=== PATIENT | male | born 1940 | race Caucasian/White ===

== ENCOUNTER 2018-04-23 19:39 | Inpatient (IN) | payer MEDICARE, OTHER ==
[~2018-04-23] VITALS: Ht 172.7 cm; Wt 60.8 kg
--- NOTE | 2018-04-23 19:39 | NUR ---
BBPA FROM [facility] C/C COMBATIVE BEHAVIOR REFUSING MEDICATIONS. NO SI HI WHEN ASSESSED BUT WILL CONTINUE TO MONITOR FOR ANY CHANGES. VSS NAD ABLE TO MAKE NEEDS KNOWN.
[2018-04-23 20:08] LABS: BASOPHILS % (AUTO) 0.2 % (0.0-2.0); EOSINOPHILS % (AUTO) 5.1 % (0.0-6.0); HEMATOCRIT 37 % (39-51); HEMOGLOBIN 12.6 g/dL (13.5-17.5); LYMPHOCYTES % (AUTO) 40.8 % (20.0-44.0); MEAN CORPUSCULAR HEMOGLOBIN 30 PG (26.0-33.0); MEAN CORPUSCULAR HGB CONC 34 g/dl (31.0-36.0); MEAN CORPUSCULAR VOLUME 89 fL (80-96); MONOCYTES # (AUTO) 0.5 /CMM (0.1-1.30); MONOCYTES % (AUTO) 10.6 % (2.0-12.0); NEUTROPHILS # (AUTO) 2.1 /CMM (1.8-8.9); NEUTROPHILS % (AUTO) 43.3 % (43.0-81.0); PLATELET COUNT (AUTO) 181 /CMM (150-450); RDW COEFFICIENT OF VARIATION 14.8 (11.5-15.0); RED BLOOD CELL COUNT(AUTO) 4.15 MIL/uL (4.5-6.0); WHITE BLOOD COUNT (AUTO) 4.8 K/uL (4.3-11.0)
[2018-04-23 20:10] LABS: APPEARANCE,URINE Slightly Cloudy (CLEAR); BILIRUBIN,URINE Negative (NEGATIVE); BLOOD, URINE Trace-lysed Ery/uL (NEGATIVE); COLOR,URINE Yellow (YELLOW); KETONES,URINE Negative (NEGATIVE); LEUKOCYTE ESTERASE ,URINE Negative (NEGATIVE); NITRITE, URINE Negative (NEGATIVE); PROTEIN,URINE Negative (NEGATIVE); UGLUCOSE Negative (NEGATIVE); UROBILINOGEN,URINE 0.2 EU/dL (0.2)
[2018-04-23 20:22] LABS: BACTERIA,URINE Rare /HPF (None Seen); SQUAMOUS EPITHELIAL CELL,UR Few /HPF (None Seen); WBC,URINE NONE SEEN /HPF (0-3)
[2018-04-23 20:24] LABS: CALCIUM, SERUM 9.6 mg/dL (8.5-10.1); CARBON DIOXIDE 29 mmol/L (21-32); CHLORIDE 104 mmol/L (98-107); CREATININE 0.7 mg/dL (0.6-1.3); GLUCOSE 117 mg/dL (74-106); POTASSIUM 3.9 mmol/L (3.5-5.1); SODIUM SERUM 138 mmol/L (136-145); UREA NITROGEN, BLOOD 17 mg/dL (7-18)
[2018-04-23 20:30] LABS: ALANINE AMINOTRANSFERASE 16 U/L (12-78); ALBUMIN 3.6 g/dL (3.4-5.0); ALCOHOL, BLOOD < 3 mg/dL (0-0); ALKALINE PHOSPHATASE 66 U/L (46-116); ASPARTATE AMINOTRANSFERASE 14 U/L (15-37); BILIRUBIN,DIRECT 0.1 mg/dL (0.0-0.2); BILIRUBIN,TOTAL 0.4 mg/dL (0.2-1.0); TOTAL PROTEIN, SERUM 7.1 g/dL (6.4-8.2)
[2018-04-23 20:32] LABS: ACETAMINOPHEN < 2 ug/ml (10-30); SALICYLATE 2.5 mg/dL (2.8-20.0)
[2018-04-23] MEDS ORDERED: MIRT15TA PO (22:13)
[2018-04-23] MEDS ORDERED: OLAN5TAB3 PO (22:13)
[2018-04-23] MEDS ORDERED: OXYB5TAB29 PO (22:13)
[2018-04-23] MEDS ORDERED: PANT40TA2 PO (22:13)
[2018-04-23] MEDS ORDERED: BENZ2AMP PO (22:13)
[2018-04-23] MEDS ORDERED: RIVA1PAT3 PO (22:13)
[2018-04-23] MEDS ORDERED: MONT10TA22 PO (22:13)
[2018-04-23] MEDS ORDERED: DIVA500T2 PO (22:13)
[2018-04-23] MEDS ORDERED: HALO10TA13 PO (22:13)
--- NOTE | 2018-04-23 22:18 | NUR ---
REPORT GIVEN TO TIFFANIE
[2018-04-23] MEDS ORDERED: MAGNESIUM HYDROXIDE 30 ML UDC PO PRN (23:30)
[2018-04-23] MEDS ORDERED: ACETAMINOPHEN 325 MG TABLET PO PRN (23:30)
[2018-04-23] MEDS ORDERED: ZOLPIDEM TARTRATE 5 MG TABLET PO PRN (23:30)
--- NOTE | 2018-04-24 02:14 | NUR ---
GPS/DOUBLE BACK OPERATOR ADMISSION NOTES: RECEIVED 77YR OLD MALE PT. ON A 5150 HOLD FOR DTO AND GD. PT. A/O X2. PT. GIVEN ADVISEMENT, ORIENTED TO UNIT POLICY AND PROTOCOLS AND ROUTINE. CONTRABAND AND BELONGINGS LOGGED AND TAKEN FROM PT. AND PLACED ON LOCKED CABINET AND SAFE. CALL BRAVO WITHIN REACH AND SAFETY ENVIRONMENT OBSERVED AT ALL TIMES. NO SI/HI AT THIS TIME. BED IN LOCKED POSITION. NO C/O PAIN OR DISCOMFORT AT THIS TIME. MEDICAL DR. GUERRERO AND PSYCH DR. BAR NOTIFIED OF PT. ADMISSION TO UNIT.
[2018-04-24] MEDS: OXYBUTYNIN CHLORIDE ER 5 MG TAB PO SCH ×2 (08:28→16:32)
[2018-04-24] MEDS: DIVALPROEX SODIUM 500 MG TABLET.DR PO SCH ×2 (08:28→16:31)
[2018-04-24] MEDS: PANTOPRAZOLE 40 MG TABLET.DR PO SCH (08:29)
[2018-04-24] MEDS: RIVASTIGMINE TARTRATE 4.6 MG PATCH.TD24 TD SCH (08:29)
[2018-04-24] MEDS: NICOTINE PATCH (21MG) 21 MG PATCH.TD24 TD SCH (09:10)
[2018-04-24] MEDS: HALOPERIDOL 5 MG TABLET PO SCH ×2 (12:54→16:32)
[2018-04-24] MEDS: BENZTROPINE MESYLATE (1 MG) 1 MG TABLET PO SCH ×2 (12:54→16:31)
[2018-04-24 16:00] VITALS: BP 128/76
--- NOTE | 2018-04-24 17:39 | NUR ---
Initial Discharge Plan: Pt resides at the [facility], [address] [facility]. [facility] [address] per 5150 report. Pts DPOA is his brother, Devaughn Bey, per facility staff report. STEVE contacted the facility and spoke to Janet who stated that pt would need to be re assessed by Helean or Bella, Administrators to evaluate his appropriateness. STEVE contacted pts brother, MARJAN Bey , however was unable to speak to him and or leave a message. SW will follow up to ensure pt is safely and adequately discharged.
[2018-04-24] MEDS: MONTELUKAST SODIUM (10MG) 10 MG TABLET PO SCH (17:48)
[2018-04-24] MEDS: MAG HYDROX/AL HYDROX/SIMETH 30 ML UDC PO PRN (20:49)
[2018-04-24] MEDS: QUETIAPINE FUMARATE 25 MG TABLET PO SCH (22:34)
[2018-04-24] MEDS: LORAZEPAM 0.5 MG TABLET PO PRN (22:34)
[2018-04-25] MEDS: MAG HYDROX/AL HYDROX/SIMETH 30 ML UDC PO PRN ×2 (01:13→09:41)
[2018-04-25] MEDS: BENZTROPINE MESYLATE (1 MG) 1 MG TABLET PO SCH ×3 (08:34→17:03)
[2018-04-25] MEDS: OXYBUTYNIN CHLORIDE ER 5 MG TAB PO SCH ×2 (08:34→17:02)
[2018-04-25] MEDS: PANTOPRAZOLE 40 MG TABLET.DR PO SCH (08:34)
[2018-04-25] MEDS: HALOPERIDOL 5 MG TABLET PO SCH ×3 (08:34→17:03)
[2018-04-25] MEDS: DIVALPROEX SODIUM 500 MG TABLET.DR PO SCH ×2 (08:34→17:02)
[2018-04-25] MEDS: RIVASTIGMINE TARTRATE 4.6 MG PATCH.TD24 TD SCH (08:35)
[2018-04-25] MEDS: NICOTINE PATCH (21MG) 21 MG PATCH.TD24 TD SCH (08:35)
--- NOTE | 2018-04-25 08:35 | NUR ---
AM RN NOTE Pt refused nicotine and Exelon patch, explained risks and benefits but still refused.
[2018-04-25 16:00] VITALS: BP 104/70
--- NOTE | 2018-04-25 16:54 | NUR ---
AM RN NOTE Dr. Chatterjee did his rounds made aware that pt refused labs with NNO at this time. Addendum: 04/25/18 at 1803 by DEN PABON RN ADD TO ABOVE NOTE DR. CHATTERJEE ALSO MADE AWARE THAT PT REFUSED EXELON AND NICOTINE PATCH.
[2018-04-25] MEDS: MONTELUKAST SODIUM (10MG) 10 MG TABLET PO SCH (17:02)
--- NOTE | 2018-04-25 19:30 | NUR ---
RN NOTES RECEIVED PATIENT AMBULATING IN HALLWAY WITH MOSTLY STEADY GAIT. AO X 1, ABLE TO MAKE NEEDS KNOWN. NO ACUTE DISTRESS NOTED. DENIES ANY PAIN AT THIS TIME. REORIENTED FREQUENTLY. SAFETY REMINDERS GIVEN. BED IN ROOM SET TO LOW WITH BILATERAL UPPER SIDE RAILS UP. CALL BRAVO WITHIN EASY REACH. WILL CONTINUE TO MONITOR.
[2018-04-25 20:00] VITALS: BP 116/69
[2018-04-25] MEDS: QUETIAPINE FUMARATE 25 MG TABLET PO SCH (22:59)
[2018-04-26] MEDS: LORAZEPAM 0.5 MG TABLET PO PRN (00:03)
[2018-04-26] MEDS: QUETIAPINE FUMARATE 25 MG TABLET PO SCH (00:06)
--- NOTE | 2018-04-26 06:27 | NUR ---
RN NOTES PATIENT ASLEEP, EASILY AROUSABLE. RESPIRATIONS EVEN. NO SIGNS OF PAIN NOTED. DUE MED GIVEN WITH NO ASE NOTE. NEEDS ATTENDED. KEPT CLEAN, DRY, AND COMFORTABLE. SAFETY PRECAUTIONS AND COMFORT MEASURES IN PLACE. WILL GIVE REPORT TO DAY SHIFT FOR CONTINUITY OF CARE.
[2018-04-26 08:00] VITALS: BP 128/74
[2018-04-26] MEDS: NICOTINE PATCH (21MG) 21 MG PATCH.TD24 TD SCH (09:00)
[2018-04-26] MEDS: RIVASTIGMINE TARTRATE 4.6 MG PATCH.TD24 TD SCH (09:00)
[2018-04-26] MEDS: HALOPERIDOL 5 MG TABLET PO SCH ×3 (09:15→16:39)
[2018-04-26] MEDS: OXYBUTYNIN CHLORIDE ER 5 MG TAB PO SCH ×2 (09:15→16:38)
[2018-04-26] MEDS: PANTOPRAZOLE 40 MG TABLET.DR PO SCH (09:15)
[2018-04-26] MEDS: DIVALPROEX SODIUM 500 MG TABLET.DR PO SCH ×2 (09:15→16:39)
[2018-04-26] MEDS: BENZTROPINE MESYLATE (1 MG) 1 MG TABLET PO SCH ×3 (09:16→16:39)
[2018-04-26 16:00] VITALS: BP 141/88
[2018-04-26] MEDS: MONTELUKAST SODIUM (10MG) 10 MG TABLET PO SCH (18:00)
--- NOTE | 2018-04-26 18:19 | NUR ---
RN CLOSING. PT PACING HALLS AND REQUESTING COFFEES. PT VOCALLY ESCALATES WITH HOSTILE TONES WHEN IS NOT UNDERSTOOD OR DENIED MORE COFFEE. PT OTHERWISE WITHOUT CONCERN OR COMPLAINT.
[2018-04-26 20:16] VITALS: BP 139/77
--- NOTE | 2018-04-26 20:26 | NUR ---
GPS RN NOTES PT. REFUSED VITAL SIGNS , ENCOURAGED AND EXPLAIN RISKS AND BENEFITS STILL REFUSED.
[2018-04-27] MEDS: NICOTINE PATCH (21MG) 21 MG PATCH.TD24 TD SCH ×2 (08:01→08:08)
[2018-04-27] MEDS: BENZTROPINE MESYLATE (1 MG) 1 MG TABLET PO SCH ×3 (08:01→16:53)
[2018-04-27] MEDS: RIVASTIGMINE TARTRATE 4.6 MG PATCH.TD24 TD SCH ×2 (08:01→08:08)
[2018-04-27] MEDS: OXYBUTYNIN CHLORIDE ER 5 MG TAB PO SCH ×2 (08:01→16:53)
[2018-04-27] MEDS: HALOPERIDOL 5 MG TABLET PO SCH ×3 (08:01→16:53)
[2018-04-27] MEDS: DIVALPROEX SODIUM 500 MG TABLET.DR PO SCH ×2 (08:01→16:53)
[2018-04-27] MEDS: PANTOPRAZOLE 40 MG TABLET.DR PO SCH (08:01)
--- NOTE | 2018-04-27 11:00 | NUR ---
pts brother/ conservator Devaughn Bey visited to speak to her regarding pts discharge plan. Pts brother understands that pt may no be accepted back to assisted living facility due to his behavior. Pts brother informed that if facility does not take pt back he would like assistance with relocating pt to another assisted living facility in the [facility]. Pts ismaer mentioned to that he is only able to pay $1.059.00/month. informed pts brother that she would contact him to further discuss discharge plans once discharge date has been given by and [facility] has done evaluation. Addendum: 05/04/18 at 1235 by SHERRY AN Brother is pts Probate conservator.
[2018-04-27 16:00] VITALS: BP_SYST 106; BP_SYST 131; BP_DIAS 103
[2018-04-27] MEDS: MONTELUKAST SODIUM (10MG) 10 MG TABLET PO SCH (17:00)
[2018-04-27 20:00] VITALS: BP 110/73
[2018-04-27] MEDS: QUETIAPINE FUMARATE 25 MG TABLET PO SCH (21:23)
[2018-04-28] MEDS: LORAZEPAM 0.5 MG TABLET PO PRN (00:32)
[2018-04-28] MEDS: MAG HYDROX/AL HYDROX/SIMETH 30 ML UDC PO PRN (02:33)
--- NOTE | 2018-04-28 06:42 | NUR ---
RN NOTES PATIENT AWAKE. RESPIRATIONS EVEN. NO SIGNS OF PAIN NOTED. DUE MED GIVEN WITH NO ASE NOTE. NEEDS ATTENDED. KEPT CLEAN, DRY, AND COMFORTABLE. SAFETY PRECAUTIONS AND COMFORT MEASURES IN PLACE. WILL GIVE REPORT TO DAY SHIFT FOR CONTINUITY OF CARE.
[2018-04-28 08:57] VITALS: BP 117/81
[2018-04-28] MEDS: OXYBUTYNIN CHLORIDE ER 5 MG TAB PO SCH ×2 (09:02→17:42)
[2018-04-28] MEDS: NICOTINE PATCH (21MG) 21 MG PATCH.TD24 TD SCH (09:02)
[2018-04-28] MEDS: RIVASTIGMINE TARTRATE 4.6 MG PATCH.TD24 TD SCH (09:02)
[2018-04-28] MEDS: HALOPERIDOL 5 MG TABLET PO SCH ×3 (09:03→17:42)
[2018-04-28] MEDS: BENZTROPINE MESYLATE (1 MG) 1 MG TABLET PO SCH ×3 (09:03→17:42)
[2018-04-28] MEDS: PANTOPRAZOLE 40 MG TABLET.DR PO SCH (09:03)
[2018-04-28] MEDS: DIVALPROEX SODIUM 500 MG TABLET.DR PO SCH ×2 (09:04→17:42)
--- NOTE | 2018-04-28 14:46 | NUR ---
STEVE contacted [facility] [phone] and left a voicemail for Opal business process coordinator to schedule evaluation for pts return back to facility.
[2018-04-28 16:00] VITALS: BP 98/72
[2018-04-28] MEDS: MONTELUKAST SODIUM (10MG) 10 MG TABLET PO SCH (17:41)
[2018-04-28] MEDS: QUETIAPINE FUMARATE 25 MG TABLET PO SCH (21:14)
[2018-04-29] MEDS: MAG HYDROX/AL HYDROX/SIMETH 30 ML UDC PO PRN (02:47)
--- NOTE | 2018-04-29 02:57 | NUR ---
GPS RN NOTES PT. REFUSED VITAL SIGNS FOR 1999 PM , ENCOURAGED AND EXPLAIN RISKS AND BENEFITS STILL REFUSED.
[2018-04-29 08:00] VITALS: BP 122/79
[2018-04-29] MEDS: NICOTINE PATCH (21MG) 21 MG PATCH.TD24 TD SCH (09:01)
[2018-04-29] MEDS: DIVALPROEX SODIUM 500 MG TABLET.DR PO SCH ×2 (09:01→17:15)
[2018-04-29] MEDS: OXYBUTYNIN CHLORIDE ER 5 MG TAB PO SCH ×2 (09:01→17:15)
[2018-04-29] MEDS: RIVASTIGMINE TARTRATE 4.6 MG PATCH.TD24 TD SCH (09:01)
[2018-04-29] MEDS: BENZTROPINE MESYLATE (1 MG) 1 MG TABLET PO SCH ×3 (09:01→17:15)
[2018-04-29] MEDS: PANTOPRAZOLE 40 MG TABLET.DR PO SCH (09:01)
[2018-04-29] MEDS: HALOPERIDOL 5 MG TABLET PO SCH ×3 (09:04→17:15)
--- NOTE | 2018-04-29 10:08 | NUR ---
STEVE contacted Helena real estate services coordinator at [facility] [address] [place] [address] to inform her that pt will be discharged on Friday05/01/18. Helena asked STEVE to fax medication list to determine a re-admission and assessment of pt.
--- NOTE | 2018-04-29 10:15 | NUR ---
STEVE faxed medications list to Helena event promotions coordinator at [facility] [address] [place] [address]
[2018-04-29 16:00] VITALS: BP 127/87
[2018-04-29] MEDS: MONTELUKAST SODIUM (10MG) 10 MG TABLET PO SCH (17:15)
[2018-04-29 20:17] VITALS: BP 140/71
[2018-04-29] MEDS: QUETIAPINE FUMARATE 25 MG TABLET PO SCH (21:11)
[2018-04-30 08:00] VITALS: BP 100/59
[2018-04-30] MEDS: BENZTROPINE MESYLATE (1 MG) 1 MG TABLET PO SCH ×3 (08:41→17:02)
[2018-04-30] MEDS: RIVASTIGMINE TARTRATE 4.6 MG PATCH.TD24 TD SCH (08:41)
[2018-04-30] MEDS: NICOTINE PATCH (21MG) 21 MG PATCH.TD24 TD SCH (08:41)
[2018-04-30] MEDS: DIVALPROEX SODIUM 500 MG TABLET.DR PO SCH ×2 (08:41→17:02)
[2018-04-30] MEDS: OXYBUTYNIN CHLORIDE ER 5 MG TAB PO SCH ×2 (08:41→17:02)
[2018-04-30] MEDS: HALOPERIDOL 5 MG TABLET PO SCH ×3 (08:41→17:02)
[2018-04-30] MEDS: PANTOPRAZOLE 40 MG TABLET.DR PO SCH (08:41)
--- NOTE | 2018-04-30 09:00 | NUR ---
GPS/RN PATIENT ADAMANTLY REFUSED A.M. MEDICATION X 3, EXPLAINED RISKS AND BENEFITS. PATIENT CURSING AT RN STATED " GET THE F OUT OF HERE, SOB" WILL CONTINUE TO ENCOURAGE TO COMPLY WITH MD REGIMEN.
--- NOTE | 2018-04-30 15:53 | NUR ---
Helena grant coordinator at [facility] [address] visited pt to do evaluation for re-admission to facility. Due to pts belligerent and irritable mood Helena stated that she may not re-admit pt. However, she will contact pts brother and discuss what his discharge wishes are. Helena also informed SW that she would help pts brother relocate pt to another facility if facility accepts pt. Helena will contact SW as soon as she speaks to pts brother.
[2018-04-30 16:00] VITALS: BP 143/55
[2018-04-30] MEDS: MONTELUKAST SODIUM (10MG) 10 MG TABLET PO SCH (17:02)
[2018-04-30 20:00] VITALS: BP 156/74
[2018-04-30] MEDS: QUETIAPINE FUMARATE 25 MG TABLET PO SCH (21:18)
[2018-05-01] MEDS: MAG HYDROX/AL HYDROX/SIMETH 30 ML UDC PO PRN ×2 (00:22→12:50)
[2018-05-01 08:00] VITALS: BP 141/75
[2018-05-01] MEDS: PANTOPRAZOLE 40 MG TABLET.DR PO SCH (08:38)
[2018-05-01] MEDS: OXYBUTYNIN CHLORIDE ER 5 MG TAB PO SCH ×2 (08:38→16:09)
[2018-05-01] MEDS: NICOTINE PATCH (21MG) 21 MG PATCH.TD24 TD SCH (08:38)
[2018-05-01] MEDS: HALOPERIDOL 5 MG TABLET PO SCH ×3 (08:38→16:09)
[2018-05-01] MEDS: RIVASTIGMINE TARTRATE 4.6 MG PATCH.TD24 TD SCH (08:38)
[2018-05-01] MEDS: DIVALPROEX SODIUM 500 MG TABLET.DR PO SCH ×2 (08:38→16:09)
[2018-05-01] MEDS: BENZTROPINE MESYLATE (1 MG) 1 MG TABLET PO SCH ×3 (08:38→16:09)
--- NOTE | 2018-05-01 09:26 | NUR ---
STEVE spoke with pts brother/ conservator Devaughn Sotero regarding placement options and discharge planning. Pts brother informed STEVE that Assisted Living facility did not accept patient back due to his behavior. Pts brother stated to STEVE that he feels pt needs higher level of care and that he would prefer pt being placed at a SNF instead of assisted living. STEVE informed pts brother that she will help form a safe and proper discharge to SNF. Addendum: 05/04/18 at 1235 by SHERRY WILSON Brother is pts Boo conservator.
--- NOTE | 2018-05-01 09:41 | NUR ---
STEVE faxed SNF referral to Erick Field Artillery Crewmember at [facility] Address: [address] [place] [address]
[2018-05-01 16:00] VITALS: BP 95/63
--- NOTE | 2018-05-01 16:00 | NUR ---
SW received phone call from CJ teller coordinator at [facility] Address: [address] [place] [address] stating that pt is accepted to facility pending Medicare SNF days verification and updated psychiatrist progress note.
[2018-05-01] MEDS: MONTELUKAST SODIUM (10MG) 10 MG TABLET PO SCH (18:13)
[2018-05-01] MEDS: QUETIAPINE FUMARATE 25 MG TABLET PO SCH (21:19)
[2018-05-02 08:00] VITALS: BP 113/72
[2018-05-02] MEDS: RIVASTIGMINE TARTRATE 4.6 MG PATCH.TD24 TD SCH (08:22)
[2018-05-02] MEDS: NICOTINE PATCH (21MG) 21 MG PATCH.TD24 TD SCH (08:22)
[2018-05-02] MEDS: HALOPERIDOL 5 MG TABLET PO SCH ×3 (08:22→16:38)
[2018-05-02] MEDS: OXYBUTYNIN CHLORIDE ER 5 MG TAB PO SCH ×2 (08:22→16:39)
[2018-05-02] MEDS: BENZTROPINE MESYLATE (1 MG) 1 MG TABLET PO SCH ×3 (08:22→16:38)
[2018-05-02] MEDS: DIVALPROEX SODIUM 500 MG TABLET.DR PO SCH ×2 (08:22→16:38)
[2018-05-02] MEDS: PANTOPRAZOLE 40 MG TABLET.DR PO SCH (08:22)
[2018-05-02 16:00] VITALS: BP 119/73
[2018-05-02] MEDS: MONTELUKAST SODIUM (10MG) 10 MG TABLET PO SCH (17:43)
[2018-05-02] MEDS: QUETIAPINE FUMARATE 25 MG TABLET PO SCH (21:09)
[2018-05-03 08:00] VITALS: BP 128/65
[2018-05-03] MEDS: DIVALPROEX SODIUM 500 MG TABLET.DR PO SCH ×2 (08:09→17:14)
[2018-05-03] MEDS: OXYBUTYNIN CHLORIDE ER 5 MG TAB PO SCH ×2 (08:09→17:16)
[2018-05-03] MEDS: HALOPERIDOL 5 MG TABLET PO SCH ×3 (08:09→17:14)
[2018-05-03] MEDS: BENZTROPINE MESYLATE (1 MG) 1 MG TABLET PO SCH ×3 (08:09→17:14)
[2018-05-03] MEDS: PANTOPRAZOLE 40 MG TABLET.DR PO SCH (08:10)
[2018-05-03] MEDS: RIVASTIGMINE TARTRATE 4.6 MG PATCH.TD24 TD SCH (08:49)
[2018-05-03] MEDS: NICOTINE PATCH (21MG) 21 MG PATCH.TD24 TD SCH (08:49)
--- NOTE | 2018-05-03 09:00 | NUR ---
GPS RN NOTE: RECEIVED PATIENT AWAKE SITTING IN CHAIR, PLEASANT UPON APPROACH, ALERT AND ORIENTED X 1-2 WITHOUT COMPLAINT. UNSTEADY SHUFFLING GAIT, 1:1 SITTER AT BEDSIDE. PATIENT CONSUMED BREAKFAST WAS MED COMPLIANT. BECAME IRRITABLE BUT REDIRECTABLE WHEN REINFORCED TEACHING TO USE HAND HELD URINAL AT BEDSIDE AND/OR ASK FOR ASSISTANCE WITH AMBULATION/ BATHROOM. PATIENT HAS REPORTEDLY URINATED ON FLOOR PREVIOUS SHIFTS. WILL CONTINUE TO OFFER REALITY ORIENTATION AND MONITOR FOR COMFORT AND SAFETY, Q 15 CHECKS.
[2018-05-03] MEDS: MAG HYDROX/AL HYDROX/SIMETH 30 ML UDC PO PRN (11:23)
--- NOTE | 2018-05-03 13:39 | NUR ---
GPS RN NOTE: PATIENT STATES HIS INDIGESTION HAS RESOLVED AND NO COMPLAINTS AT THIS TIME. REMAINS LABILE.
[2018-05-03 16:01] VITALS: BP 130/84
[2018-05-03] MEDS: MONTELUKAST SODIUM (10MG) 10 MG TABLET PO SCH (17:14)
[2018-05-03] MEDS: QUETIAPINE FUMARATE 25 MG TABLET PO SCH (21:09)
[2018-05-03] MEDS: LORAZEPAM 0.5 MG TABLET PO PRN (22:25)
--- NOTE | 2018-05-04 06:24 | NUR ---
GPS RN NOTES PT. REFUSED VITAL SIGNS FOR 1999 PM , ENCOURAGED AND EXPLAIN RISKS AND BENEFITS STILL REFUSED.
[2018-05-04 06:30] VITALS: BP 122/84
--- NOTE | 2018-05-04 06:35 | NUR ---
RN-GPS AT AROUND 6:30AM WELDER FITTER APPRENTICE ASSIGNED FOUND THE PATIENT LYING ON THE FLOOR AT THE HALLWAY OUTSIDE THE NURSES'S STATION. WHEN ASKED WHAT HAPPENED PATIENT STATED "I DIDN'T HIT MY HEAD ON THE FLOOR". PHYSICAL ASSESSMENT DONE, ACTIVE RANGE OF MOTION SATISFACTORY ABLE TO MOVE UPPER AND LOWER EXTREMITIES. PATIENT GOT UP WITH ASSISTANCE NO BRUISES, NO SWELLING NOTED. SKIN INTACT. DENIES ANY PAIN. V/S TAKEN BP 122/84, ME 87, R18. T98.8 O2 SATURATION @99%. NURSE ROD HANGER JT MADE AWARE AND DR. FIGUEROA WAS NOTIFIED WITH NO NEW ORDER. NO FAMILY MEMBER GIVEN PER CHART. UNABLE TO REPORT INCIDENT. MAINTAINED FALL PRECAUTION. BED LOCKED AND PLACED ON LOWEST POSITION. SIDE RAILS UP. KEPT BED ALARM ON AT ALL TIMES. INSTRUCTED PATIENT TO CALL FOR HELP WHEN HE NEEDS IT. 1:1 SITTER ORDERED FOR SAFETY. WILL CONTINUE TO MONITOR FOR SAFETY AND BEHAVIOR. Addendum: 05/04/18 at 0756 by BRE SIMS RN RN-GPS: MILLY CHARTING 1:1 SITTER, PT IS LINE OF SIGHT.
--- NOTE | 2018-05-04 06:40 | NUR ---
GPS RN NOTES :OFFERED TYLENOL BUT PT. REFUSED , PT. STATED I AM OK , THIS IS NOT YOUR BUSINEESS, PT. DENIES ANY DISCOMFORT AT THIS TIME .PT. VERBALLY ABUSIVE .
--- NOTE | 2018-05-04 06:45 | NUR ---
GPS RN NOTES: PAGED DR. HASKINS AWAITING TO CALL BACK,
--- NOTE | 2018-05-04 07:30 | NUR ---
GPS RN NOTES : STILL AWAITING CALL BACK FROM DR. FIGUEROA , ENDORSE TO ON COMING NURSE TO FOLLOW UP .
[2018-05-04 08:00] VITALS: BP 96/70
--- NOTE | 2018-05-04 08:15 | NUR ---
SW received phone call from business development coordinator at [facility] Address: [address] [place] [address] stating that pt was not accepted to facility due to pt having 0 Medicare SNF days available.
--- NOTE | 2018-05-04 08:20 | NUR ---
STEVE contacted Helena submarine element coordinator [place] [address] to inform her that by law facility needed to accept pt and provide him with a 30 day notice if they no longer wanted to provide him with care. Helena informed STEVE that facility would take pt back.
[2018-05-04] MEDS: BENZTROPINE MESYLATE (1 MG) 1 MG TABLET PO SCH ×3 (08:24→17:05)
[2018-05-04] MEDS: HALOPERIDOL 5 MG TABLET PO SCH ×3 (08:24→17:05)
[2018-05-04] MEDS: DIVALPROEX SODIUM 500 MG TABLET.DR PO SCH ×2 (08:24→17:05)
[2018-05-04] MEDS: OXYBUTYNIN CHLORIDE ER 5 MG TAB PO SCH ×2 (08:25→17:05)
[2018-05-04] MEDS: NICOTINE PATCH (21MG) 21 MG PATCH.TD24 TD SCH (08:25)
[2018-05-04] MEDS: RIVASTIGMINE TARTRATE 4.6 MG PATCH.TD24 TD SCH (08:25)
[2018-05-04] MEDS: PANTOPRAZOLE 40 MG TABLET.DR PO SCH (08:25)
--- NOTE | 2018-05-04 08:30 | NUR ---
STEVE contacted pts brother Devaughn [phone] to inform him pt was not accepted to SNF due to pt having 0 Medicare SNF days available. STEVE informed opts brother that pt would be discharged tomorrow back to [facility] Pts brother was upset stating that he did not want pt discharged to assisted living due to him needing a higher level of care. He stated that yesterday when he came to visit pt he was aggressive with nursing staff and refusing to take medication. Pts brother stated that he witnessed pts behavior and strongly feels pt is not ready for discharge. STEVE explained to pts brother that MD has ordered discharged and feels pt is stable for discharge back to Assisted facility. Pts brother was angry and wanted SNFs contact info to verify the information SW was providing him was true. STEVE provided pts brother with [facility]ant[facility] Schultz's contact info.
--- NOTE | 2018-05-04 09:00 | NUR ---
STEVE received phone call from pts conservator's daughter Ting [phone] stating that she disagreed with discharge plan. STEVE explained that pt no longer had SNF days and she stated that SNF should be paid by Medical since pt is Medi/Medi. STEVE re-explained that SNFs are covered by Medicare and pt no longer had days available for coverage. Yanet was upset and stated she would contact hospital administration.
--- NOTE | 2018-05-04 09:57 | NUR ---
STEVE spoke with pts brother/ conservator Devaughn Bey to inform him that pt could not be discharged to SNF because pt has 0 Medicare SNF days and [facility] declined admissions for this reason. STEVE also informed pts brother/conservator that pt will return to [facility] after speaking with Helena [phone] patient appointment coordinator regarding legal policy. Pts brother/conservator disagrees with discharge plan stating that pt is not ready for discharge and does not want pt returning back to [facility] because he needs a higher level of care. SW explained to pts brother/conservator that Pt did not have any more Medicare SNF days and unfortunately wouldn't be able to discharge to SNF unless they paid of out pocket. Pts brother/ conservator went on to say that pt has Medi/Medi and thus did not require to pay anything. STEVE explained to pts conservator that during intake hospital runs a report with Medicare and thus determines how many Medicare SNF days pt has available. Also SW explained to pts conservator that SNFs do the same. SW explained to pts conservator that Medicare SNF coverage is determined by Medicare and not the hospital or the SNF, pts conservator understood and stated he would contact Medicare to discuss coverage and that he knew hospital and SW weren't at fault. STEVE explained that psych unit is short term and agreed that pt needs a higher level of care however, pt could not be discharged to SNF due to medical coverage and would be discharged to Assisted Living facility where pt came from. STEVE suggested to pts conservator that he discuss with Assisted Living facility options for placement such as Memory Care D[facility] facilities where pt could receive the level of care he requires. STEVE stated to pt that she would discharge pt tomorrow at 1pm via [facility]. Pts conservator agreed. STEVE also informed pts karuna that his daughter Ting [phone] contacted to discuss discharge however due to him being pts legal national sales representative moving forward SW will only communicate with him. Pts karuna understood. Addendum: 05/04/18 at 1236 by SHERRY WILSON Brother is chapo Haddad conservator.
--- NOTE | 2018-05-04 11:46 | NUR ---
STEVE faxed referral packet to [facility] Address: [address] [place] [address] for review.
--- NOTE | 2018-05-04 13:42 | NUR ---
Jameel received call back from Yancy email marketing coordinator at [facility] Address: [address] [place] [address] to inform SW that facility would not accept pt due to him not having anymore Medicare bed days.
--- NOTE | 2018-05-04 15:06 | NUR ---
STEVE submitted SNF referral to STEVE faxed [phone] [facility] Address: [address] [place] [address] [address] [facility] Address: [address] [place] [address] for review.
--- NOTE | 2018-05-04 15:29 | NUR ---
SW received phone call from [facility] Address: [address] [place] [address] and [facility] Address: [address] [place] [address] stating that pt was not accepted to facilities due to 0 Medicare bed days. He also informed that facilities do not take Medical coverage and are unable to accept pts that have exhausted Medicare days.
[2018-05-04 16:00] VITALS: BP 141/77
--- NOTE | 2018-05-04 16:04 | NUR ---
Family has appealed discharge. SW will work with [facility] and submit requested documentation.
--- NOTE | 2018-05-04 16:05 | NUR ---
STEVE has faxed requested documentation to [facility] [phone]. CONTROL ID # [id number].
[2018-05-04] MEDS: MONTELUKAST SODIUM (10MG) 10 MG TABLET PO SCH (17:05)
[2018-05-04] MEDS: LORAZEPAM 0.5 MG TABLET PO PRN (21:16)
[2018-05-04] MEDS: QUETIAPINE FUMARATE 25 MG TABLET PO SCH (21:17)
[2018-05-05 08:00] VITALS: BP 125/66
[2018-05-05] MEDS: DIVALPROEX SODIUM 500 MG TABLET.DR PO SCH ×2 (08:11→17:48)
[2018-05-05] MEDS: BENZTROPINE MESYLATE (1 MG) 1 MG TABLET PO SCH ×3 (08:11→17:48)
[2018-05-05] MEDS: OXYBUTYNIN CHLORIDE ER 5 MG TAB PO SCH ×2 (08:12→17:48)
[2018-05-05] MEDS: PANTOPRAZOLE 40 MG TABLET.DR PO SCH (08:12)
--- NOTE | 2018-05-05 09:00 | NUR ---
GPS RN NOTE: RECEIVED PATIENT AWAKE SITTING IN CHAIR, PLEASANT UPON APPROACH, ALERT AND ORIENTED X 1-2 WITHOUT COMPLAINT. UNSTEADY SHUFFLING GAIT, 1:1 SITTER AT BEDSIDE. PATIENT CONSUMED BREAKFAST WAS MED COMPLIANT. INITIATES INTERACTION TO CALMLY ASK FOR NEEDS. REMAINS CONFUSED AT TIMES NEEDING REDIRECTION BUT LESS THIS SHIFT. WILL CONTINUE TO OFFER REALITY ORIENTATION AND MONITOR FOR COMFORT AND SAFETY, Q 15 CHECKS.
[2018-05-05] MEDS: HALOPERIDOL 5 MG TABLET PO SCH ×3 (09:47→17:47)
[2018-05-05] MEDS: NICOTINE PATCH (21MG) 21 MG PATCH.TD24 TD SCH (09:47)
[2018-05-05] MEDS: RIVASTIGMINE TARTRATE 4.6 MG PATCH.TD24 TD SCH (09:47)
--- NOTE | 2018-05-05 11:35 | NUR ---
STEVE contacted Apurva post adoption coordinator from [facility] Address: [address] , [place] [address] to inquire if facility accepted pts with exhausted Medicare bed days. Apurva stated to STEVE to fax referral for review.
--- NOTE | 2018-05-05 11:43 | NUR ---
STEVE faxed referral to Apurva cooperative education coordinator from [facility] Address: [address] , [place] [address] fax: [phone] referral for review.
[2018-05-05 16:00] VITALS: BP 118/80
[2018-05-05] MEDS: MONTELUKAST SODIUM (10MG) 10 MG TABLET PO SCH (17:48)
[2018-05-05 19:58] VITALS: BP 101/62
[2018-05-05] MEDS: LORAZEPAM 0.5 MG TABLET PO PRN (21:03)
--- NOTE | 2018-05-05 21:03 | NUR ---
GPS-RN PATIENT IS ANXIOUS, RESTLESS AND UNABLE TO SIT STILL. VSS. ADMINISTERED ATIVAN 1MG PO ORDERED. WILL CONTINUE TO MONITOR [id number] FOR SAFETY AND BEHAVIOR.
[2018-05-05] MEDS: QUETIAPINE FUMARATE 100 MG TABLET PO SCH (21:38)
[2018-05-06 08:00] VITALS: BP 137/70
[2018-05-06] MEDS: BENZTROPINE MESYLATE (1 MG) 1 MG TABLET PO SCH ×3 (09:07→16:12)
[2018-05-06] MEDS: PANTOPRAZOLE 40 MG TABLET.DR PO SCH (09:07)
[2018-05-06] MEDS: HALOPERIDOL 5 MG TABLET PO SCH ×3 (09:07→16:12)
[2018-05-06] MEDS: OXYBUTYNIN CHLORIDE ER 5 MG TAB PO SCH ×2 (09:07→16:13)
[2018-05-06] MEDS: NICOTINE PATCH (21MG) 21 MG PATCH.TD24 TD SCH (09:07)
[2018-05-06] MEDS: DIVALPROEX SODIUM 500 MG TABLET.DR PO SCH ×2 (09:07→16:12)
[2018-05-06] MEDS: RIVASTIGMINE TARTRATE 4.6 MG PATCH.TD24 TD SCH (09:07)
[2018-05-06] MEDS: MAG HYDROX/AL HYDROX/SIMETH 30 ML UDC PO PRN (16:20)
[2018-05-06 16:58] VITALS: BP 129/89
[2018-05-06] MEDS: MONTELUKAST SODIUM (10MG) 10 MG TABLET PO SCH (17:11)
[2018-05-06 20:31] VITALS: BP 151/91
[2018-05-06] MEDS: QUETIAPINE FUMARATE 100 MG TABLET PO SCH (21:07)
--- NOTE | 2018-05-06 22:15 | NUR ---
GPS-RN PATIENT NOTED WITH EPISODE OF URINARY INCONTINENCE X1. PATIENT CURRENTLY ON DITROPAN XL 5MG BID. WILL CONTINUE TO MONITOR.
[2018-05-06] MEDS: LORAZEPAM 0.5 MG TABLET PO PRN (23:13)
--- NOTE | 2018-05-06 23:14 | NUR ---
GPS-RN PATIENT VERY ANXIOUS, PACING IN AND OUT TO HIS ROOM, ARGUMENTATIVE. OFFERED ATIVAN AND AGREED. ADMINISTERED ATIVAN 1MG PO ORDERED. WILL CONTINUE TO MONITOR Q15MIN ROUNDS FOR SAFETY AND BEHAVIOR.
[2018-05-07] MEDS: HALOPERIDOL 5 MG TABLET PO SCH ×2 (08:42→12:41)
[2018-05-07] MEDS: LORAZEPAM 0.5 MG TABLET PO PRN (08:42)
[2018-05-07] MEDS: NICOTINE PATCH (21MG) 21 MG PATCH.TD24 TD SCH (08:42)
[2018-05-07] MEDS: BENZTROPINE MESYLATE (1 MG) 1 MG TABLET PO SCH ×2 (08:42→12:41)
[2018-05-07] MEDS: DIVALPROEX SODIUM 500 MG TABLET.DR PO SCH (08:42)
[2018-05-07] MEDS: PANTOPRAZOLE 40 MG TABLET.DR PO SCH (08:45)
[2018-05-07] MEDS: OXYBUTYNIN CHLORIDE ER 5 MG TAB PO SCH (08:45)
[2018-05-07] MEDS: RIVASTIGMINE TARTRATE 4.6 MG PATCH.TD24 TD SCH (08:45)
--- NOTE | 2018-05-07 09:18 | NUR ---
STEVE contacted [facility] [phone] and spoke with Mary who stated appeal was denied and [facility] agreed with termination of services and liability began on 05/06/18.
--- NOTE | 2018-05-07 09:39 | NUR ---
STEVE contacted pts brother Devaughn [phone] to inform him Maggie has denied his appeal and that liability started on 05/06/18. STEVE also informed him that MD was giving family 24 hours to find SNF placement for pt or if they agreed to discharge to [facility] pt would be discharged today. Pts brother informed SW that he has been notified that appeal had been denied and agreed with pts discharge on this day back to [facility].
--- NOTE | 2018-05-07 09:43 | NUR ---
STEVE contacted [facility] [place] [address] and spoke with Justyna and informed her that pt will be discharged on this day to their facility. Facility agreed with discharge.
--- NOTE | 2018-05-07 13:00 | NUR ---
DISCHARGED TO [facility] VIA AMBULANCE.PRESCRIPTIONS FAXED TO [facility] AND CALLED IN AND SPOKE TO PHARMACIST,LISSET FOR CONFIRMATION THAT THEY HAVE RECEIVED THE FAXED MED RECON ORDERS.DISCHARGED PT WITH STABLE V/S WITH NO SUICIDAL IDEATIONS OR HALLUCINATIONS.PT DENIES ANY PAIN OR DISTRESS AND WAS COMPLIANT WITH HIS MEDS.REFUSED BODY CHECK INSPITE OF EXPLAINING ITS RISKS AND BENEFITS.SEEN BY DR PASTRANA WITH NEW PRESCRIPTIONS HANDED TO THE AMBULANCE EMT(ORIGINAL RX COPY)HANDED PT'S MONEY OF $129 AND COUNTED THE MONEY WITH THE AMBULANCE CONFERENCE SERVICES COORDINATOR PRIOR TO HANDING IT TO THE AMBULANCE CONFERENCE SERVICES COORDINATOR.REPORT CALLED IN TO [facility].
--- NOTE | 2018-05-07 13:51 | NUR ---
DISCHARGE NOTE: Pt was discharged at 1:00pm via [facility] trip # [id number] to [facility] [address] [place] [address] . Pts brother Devaughn [phone] has been notified and agreed with discharge plan. Pt appeared in a pleasant mood with congruent affect. Pt denied suicidal/homicidal ideations and denied visual/auditory hallucinations. Pt was given a Psychiatrist referral to [facility] [address] [facility] [address] and pt will be under the medical care of Sas Administrator: Dr. Genevieve Pace [address] [facility] [address], [place] [address] [phone]. The multidisciplinary exitcare form was done, printed, signed, and given to the patient.
== END 2018-05-07 13:00 | DRG 885 ==
LOC: ER 19:41 → GPS 22:19
PROVIDERS: ADMIT Psychiatry & Neurology Psychiatry; ATTEND Registered Nurse
DX: F25.0 Schizoaffective disorder, bipolar type (principal); F02.80 Dementia in other diseases classified elsewhere, unspecified severity, without behavioral disturbance, psychotic disturbance, mood disturbance, and anxiety; F23 Brief psychotic disorder; G40.909 Epilepsy, unspecified, not intractable, without status epilepticus; K21.9 Gastro-esophageal reflux disease without esophagitis; F32.9 Major depressive disorder, single episode, unspecified; R32 Unspecified urinary incontinence; G20 Parkinson's disease; G30.9 Alzheimer's disease, unspecified; N32.81 Overactive bladder; D64.9 Anemia, unspecified; F17.210 Nicotine dependence, cigarettes, uncomplicated
CPT/HCPCS: 36415; 80048-TC; 80076-TC; 80164-TC; 80305; 81000-TC; 85025-TC; 87081-TC; A4606; A6402; G0480; J7030; Z7610